=== PATIENT | male | born 1975 | race Caucasian/White ===

== ENCOUNTER 2018-05-31 13:25 | Emergency (ER) | payer OTHER ==
--- NOTE | 2018-05-31 13:59 | ERPHSYRPT ---
- History of Present Illness Time Seen by Provider: 05/31/18 13:45 Source: patient Exam Limitations: no limitations Physician History: 42 y/o white male fell off [place] 8 [place] bridge onto soft mud. occurred at work. he landed on his back. he arrives to ED with mild lower back and left shoulder pain. he does not want an IV or injection. he denies head injury. he walked into ED on his own. Occurred: just prior to arrival Reason for Fall: lost balance, slipped Injuries/Pain Location: upper extremity (left shoulder), back, lower Loss of Consciousness: no loss of consciousness Quality: aching (mild) Severity of Pain-Max: mild Severity of Pain-Current: none Modifying Factors: Improves With: nothing Associated Symptoms (Fall): back pain, extremity injury (left shoulder), No abdominal pain, No confusion, No chest pain, No dizziness, No nausea, No neck pain, No ringing in ears, No shortness of breath, No slurred speech, No trouble walking, No vomiting, No vision changes - Review of Systems Constitutional: No Symptoms Eyes: No Symptoms Ears, Nose, & Throat: No Symptoms Respiratory: No Symptoms Cardiac: No Symptoms Abdominal/Gastrointestinal: No Symptoms Genitourinary Symptoms: No Symptoms Musculoskeletal: Back Pain (mild lower ), Joint Pain (mild left shoulder) Skin: No Symptoms Neurological: No Symptoms Psychological: No Symptoms Endocrine: No Symptoms Hematologic/Lymphatic: No Symptoms Immunological/Allergic: No Symptoms All Other Systems: Reviewed and Negative - Past Medical History Neurological History: No Pertinent History ENT History: No Pertinent History Cardiac History: No Pertinent History Respiratory History: No Pertinent History Endocrine Medical History: No Pertinent History Musculoskeletal History: No Pertinent History GI Medical History: No Pertinent History History: No Pertinent History Psycho-Social History: No Pertinent History Male Reproductive Disorders: No Pertinent History - Past Surgical History Neuro Surgical History: No Pertinent History Cardiac: No Pertinent History Respiratory: No Pertinent History Gastrointestinal: No Pertinent History Genitourinary: No Pertinent History Musculoskeletal: No Pertinent History Male Surgical History: No Pertinent History - Nursing Vital Signs Nursing Vital Signs: Initial Vital Signs Temperature 98 F 05/31/18 13:44 Pulse Rate 60 05/31/18 13:44 Respiratory Rate 18 05/31/18 13:44 Blood Pressure 150/100 05/31/18 13:44 O2 Sat by Pulse Oximetry 96 05/31/18 13:44 Pain Scale Pain Intensity 3 - Eleazar Coma Score Best Eye Response ([place]): (4) open spontaneously Best Verbal Response ([place]): (5) oriented Best Motor Response ([place]): (6) obeys commands Eleazar Total: 15 - Physical Exam General Appearance: no apparent distress, alert Head Injury: no evidence of injury Eye Exam: PERRL/EOMI, eyes nml inspection ENT Exam: airway nml, nml ext.inspection Neck Exam: supple, trachea midline, full range of motion, normal alignment Respiratory/Chest Exam: normal breath sounds, No chest tenderness, No respiratory distress, No wheezing, No accessory muscle use, No rib tenderness Cardiovascular Exam: normal heart sounds, regular rate/rhythm Gastrointestinal Exam: soft, normal bowel sounds, No tenderness, No guarding, No rebound Back Exam: normal inspection, normal range of motion, No CVA tenderness, No vertebral tenderness, No decreased range of motion, No muscle spasm, No point tenderness Extremity Exam: normal inspection, normal range of motion, capillary refill <3 sec, pelvis stable Neurologic Exam: alert, oriented x 3, cooperative, 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 Skin Exam: normal color, warm, dry SpO2 Interpretation: normal Oxygen Delivery: Room Air - Course Nursing assessment & vital signs reviewed: Yes Ordered Tests: Active Orders 24 hr Category Date Time Status LUMBAR LIMITED (2 OR 3 VIEWS) Stat Exams 05/31/18 13:59 Completed SHOULDER Stat Exams 05/31/18 14:00 Completed - Progress Progress: unchanged Progress Note: 05/31/18 14:42 xray left shoulder and lumbar spine- no acute process Counseled pt/family regarding: diagnosis, need for follow-up, rad results - Departure Time of Disposition: 14:42 Departure Disposition: Home Clinical Impression: Fall, Contusion Condition: Stable Critical Care Time: No Additional Instructions: ice pack 3 times daily for pain. tylenol and ibuprofen for pain. follow up with primary doctor for further management
--- NOTE | 2018-05-31 14:33 | XRAY ---
Indication: Pain following fall. Comparison: None 3 views of the lumbar spine demonstrates 5 lumbar vertebral segments in normal alignment with minimal multilevel degenerative endplate spurring and L5-S1 disc space narrowing. No other bony, articular, or soft tissue abnormalities.
--- NOTE | 2018-05-31 14:36 | XRAY ---
Indication: Pain following fall. Comparison: None 3 views of the left shoulder obtained. No bony, articular, or soft tissue abnormalities.
[2018-05-31 16:16] VITALS: BP 128/78; PULSE 66; O2SAT 97
== END 2018-05-31 15:00 | disposition home or self-care (01) ==
LOC: ED 13:25
DX: S30.0XXA Contusion of lower back and pelvis, initial encounter (principal); S40.012A Contusion of left shoulder, initial encounter; M54.5 Low back pain; M25.512 Pain in left shoulder; W17.89XA Other fall from one level to another, initial encounter; Y93.89 Activity, other specified; Y99.0 Civilian activity done for income or pay
CPT/HCPCS: 72100; 73030; 99283